=== PATIENT | female | born 1945 | race Caucasian/White ===

== ENCOUNTER 2016-12-11 23:49 | Emergency (ER) | payer MEDICARE ==
[2016-12-11 23:55] VITALS: TEMP 97
[2016-12-12] MEDS ORDERED: ONDANSETRON 4 MG/2 ML VIAL IVP STA (00:36)
[2016-12-12] MEDS ORDERED: MORPHINE SULFATE 4 MG/ML SYRINGE IV STA (00:36)
[2016-12-12 00:45] LABS: Basophils # (A) 0.1 k/uL (0-0.2); Basophils % (A) 1 %; CH 31.9; CHCM 34.5; Eosinophils # (A) 0.3 k/uL (0-0.7); Eosinophils % (A) 3 %; HCT 41.1 % (34.0-46.0); HDW 2.45; HGB 13.9 gm/dL (11.4-16.0); Luc # (Auto) 0.36; Luc % (Auto) 4; Lymphocytes # (A) 4.5 k/uL (1.0-4.8); Lymphocytes % (A) 46 %; MCH 31.3 pg (25.0-35.0); MCHC 33.8 g/dL (31.0-37.0); MCV 92.6 fL (80.0-100.0); Mean Platelet Volume 6.7; Monocytes # (A) 0.5 k/uL (0-1.0); Monocytes % (A) 6 %; Neutrophils % (A) 41 %; RBC 4.43 m/uL (3.80-5.40); RDW 12.6 % (11.5-15.5); WBC 9.7 k/uL (3.8-10.6); WBC (Perox) 9.52
[2016-12-12 00:54] LABS: ALT 31 U/L (9-52); AST 27 U/L (14-36); Alkaline Phosphatase 52 U/L (38-126); Amylase 77 U/L (30-110); Anion Gap 9 mmol/L; Blood Urea Nitrogen 13 mg/dL (7-17); Calcium 9.6 mg/dL (8.4-10.2); Carbon Dioxide 26 mmol/L (22-30); Chloride 106 mmol/L (98-107); Glucose 92 mg/dL (74-99); Non-African American GFR(MDRD) >60 (>60 ml/min/1.73 sqM); Potassium 4.3 mmol/L (3.5-5.1); Sodium 141 mmol/L (137-145); Total Bilirubin 0.3 mg/dL (0.2-1.3); Total Protein 7.1 g/dL (6.3-8.2)
--- NOTE | 2016-12-12 01:40 | CT ---
EXAM: CT ABDOMEN + PELVIS Without Contrast INDICATION: 71-year-old female with right upper quadrant pain, stone protocol. COMPARISON: None. TECHNIQUE: Multiple axial CT images of the abdomen and pelvis without contrast material. Reformatted coronal and sagittal images are submitted. DOSE: CTDI is 13.10 mGy and DLP is 632.20 mGy-cm. DOSE REDUCTION: This CT exam was performed using one or more of the following dose reduction techniques: automated exposure control, adjustment of the mA and/or kV according to patient size, and/or use of iterative reconstruction technique. FINDINGS: Lung bases: Clear. No pleural effusion. Solid organs: 1.2 cm hypodense lesion is present in the left lobe of the liver near the hepatic dome most compatible with a hepatic cyst. No renal or ureteral calculi present. No hydronephrosis or perinephric fluid. Ureters are normal caliber. Remaining solid organs are unremarkable in this noncontrast examination tailored for the evaluation of renal calculi. The gallbladder is within normal limits. GI tract: Scattered sigmoid diverticula are present without inflammatory changes to suggest diverticulitis. The stomach, small intestine, and remaining large intestine is within normal limits. There is no free intraperitoneal air or fluid. The appendix is not well-visualized. No secondary sign of appendicitis. Lymph nodes: No pathologically enlarged lymph nodes. Vascular: Atherosclerosis. No aneurysm. Musculoskeletal: No aggressive appearing osseous lesion or evidence of compression fracture. Soft tissues are unremarkable. Pelvic contents: Urinary bladder is mildly distended. Multiple phleboliths are present in the pelvis. No pelvic adenopathy, free fluid, or inflammatory process. IMPRESSION: 1. No acute abdominal pelvic abnormality. 2. No renal/ureteral calculi or evidence of obstructive uropathy. 3. Small hepatic cyst. 4. Sigmoid diverticulosis without evidence of diverticulitis.
[2016-12-12 01:44] LABS: Appearance,Urine Clear (Clear); Bilirubin,Urine Negative (Negative); Glucose,Urine (UA) Negative (Negative); Ketones,Urine Negative (Negative); Leukocyte Esterase,Urine Small (Negative); Nitrite,Urine Negative (Negative); PH, Urine 7.5 (5.0-8.0); Particle Count 360; Protein,Urine Negative (Negative); Specific Gravity,Urine 1.004 (1.001-1.035); Squamous Epithelial Cell,Urine <1 /hpf (0-4); UA Billing (MACRO vs. MICRO) MICRO; Urobilinogen,Urine <2.0 mg/dL (<2.0); WBC,Urine 1 /hpf (0-5)
--- NOTE | 2016-12-12 02:39 | ED ---
Abdominal Pain HPI <MikeabyYoko - Last Filed: 12/13/16 00:53> - General Source: patient Mode of arrival: ambulatory Limitations: no limitations - History of Present Illness MD Complaint: abdominal pain, flank pain -: days(s) Location: RUQ, R flank Radiation: none Migration to: no migration Quality: sharp Consistency: constant Improves With: nothing Worsens With: nothing Associated Symptoms: nausea <Richie Shipley - Last Filed: 12/29/16 11:34> - General Chief Complaint: Abdominal Pain Stated Complaint: back/abd pain Time Seen by Provider: 12/12/16 00:26 - Related Data Home Medications Medication Instructions Recorded Confirmed Citalopram Hydrobromide [CeleXA] 30 mg PO DAILY 02/23/14 04/05/16 busPIRone HCL [Buspar] 15 mg PO TID 02/23/14 04/05/16 lamoTRIgine [LaMICtal] 37.5 mg PO DAILY 02/23/14 04/05/16 Colchicine 0.6 mg PO DAILY PRN 01/02/16 04/05/16 Previous Rx's Medication Instructions Recorded Famciclovir [Famvir] 500 mg PO TID #21 tablet 04/05/16 Hydrocodone/Acetaminophen [[place] 1 each PO Q6HR PRN #20 tab 04/05/16 5-325] hydrOXYzine HCL 25 mg PO TID #10 tablet 04/05/16 Cyclobenzaprine [Flexeril] 10 mg PO TID #20 tab 05/24/16 HYDROcodone/APAP 5-325MG [[place] 1 - 2 tab PO Q6HR PRN #15 tab 05/24/16 5-325] traMADol HCl [Ultram] 50 mg PO Q6H PRN #20 tab 12/12/16 Hydrocodone/Acetaminophen [[place] 1 each PO Q6HR PRN #20 tab 12/13/16 5-325] Allergies Allergy/AdvReac Type Severity Reaction Status Date / Time Penicillins Allergy Rash/Hives Verified 12/13/16 00:32 ciprofloxacin [From Cipro] AdvReac Vomiting Verified 12/13/16 00:32 metformin HCl AdvReac LACTIC Verified 12/13/16 00:32 [From Glucophage] ACIDOSIS NSAIDS (Non-Steroidal AdvReac ELAVATED Verified 12/13/16 00:32 Anti-Inflamma LIVER ENZYMES prednisone AdvReac Hallucinati Verified 12/13/16 00:32 ons Review of Systems ROS Other: All systems not noted in ROS Statement are negative. <Yoko Rhoades - Last Filed: 12/13/16 00:53> ROS Other: All systems not noted in ROS Statement are negative. Constitutional: Denies: fever, chills Respiratory: Denies: cough, dyspnea Cardiovascular: Denies: chest pain, palpitations, edema, syncope Gastrointestinal: Reports: as per HPI, abdominal pain. Denies: vomiting, diarrhea, constipation, melena, hematochezia Genitourinary: Denies: dysuria, hematuria Musculoskeletal: Denies: back pain Skin: Denies: rash Neurological: Denies: headache <Richie Shipley Filed: 12/29/16 11:34> ROS Statement: Those systems with pertinent positive or pertinent negative responses have been documented in the HPI. Past Medical History Past Medical History: Diabetes Mellitus Additional Past Medical History / Comment(s): DDD, chronic back pain, gout History of Any Multi-Drug Resistant Organisms: None Reported Past Surgical History: Orthopedic Surgery, Tubal Ligation Additional Past Surgical History / Comment(s): cataract surgery December 2012 Past Anesthesia/Blood Transfusion Reactions: No Reported Reaction Past Psychological History: Bipolar Smoking Status: Current every day smoker Past Alcohol Use History: Rare Past Drug Use History: None Reported <Richie Shipley Filed: 12/29/16 11:34> General Exam Limitations: no limitations General appearance: alert, in no apparent distress Head exam: Present: atraumatic, normocephalic Eye exam: Present: normal appearance. Absent: scleral icterus, conjunctival injection Neck exam: Present: normal inspection, full ROM Respiratory exam: Present: normal lung sounds bilaterally. Absent: respiratory distress, wheezes, rales, rhonchi, stridor Cardiovascular Exam: Present: regular rate, normal rhythm, normal heart sounds. Absent: systolic murmur, diastolic murmur, rubs, gallop GI/Abdominal exam: Present: soft. Absent: distended, tenderness, guarding, rebound Extremities exam: Present: normal inspection, normal capillary refill. Absent: pedal edema, calf tenderness Neurological exam: Present: alert Skin exam: Present: warm, dry, intact, normal color. Absent: rash <Richie Shipley Filed: 12/29/16 11:34> Medical Decision Making - Lab Data Result diagrams: 12/12/16 00:14 12/12/16 00:14 <Yoko Rhoades - Last Filed: 12/13/16 00:53> - Lab Data Result diagrams: 12/12/16 00:14 12/12/16 00:14 <Richie Shipley - Last Filed: 12/29/16 11:34> - Lab Data Lab Results 12/12/16 12/12/16 12/12/16 Range/Units 00:14 00:14 01:03 WBC 9.7 (3.8-10.6) k/uL RBC 4.43 (3.80-5.40) m/uL Hgb 13.9 (11.4-16.0) gm/dL Hct 41.1 (34.0-46.0) % MCV 92.6 (80.0-100.0) fL MCH 31.3 (25.0-35.0) pg MCHC 33.8 (31.0-37.0) g/dL RDW 12.6 (11.5-15.5) % Plt Count 218 (150-450) k/uL Neutrophils % 41 % Lymphocytes % 46 % Monocytes % 6 % Eosinophils % 3 % Basophils % 1 % Neutrophils # 4.0 (1.3-7.7) k/uL Lymphocytes # 4.5 (1.0-4.8) k/uL Monocytes # 0.5 (0-1.0) k/uL Eosinophils # 0.3 (0-0.7) k/uL Basophils # 0.1 (0-0.2) k/uL Sodium 141 (137-145) mmol/L Potassium 4.3 (3.5-5.1) mmol/L Chloride 106 (98-107) mmol/L Carbon Dioxide 26 (22-30) mmol/L Anion Gap 9 mmol/L BUN 13 (7-17) mg/dL Creatinine 0.80 (0.52-1.04) mg/dL Est GFR (MDRD) Af Amer >60 (>60 ml/min/1.73 sqM) Est GFR (MDRD) Non-Af >60 (>60 ml/min/1.73 sqM) Glucose 92 (74-99) mg/dL Calcium 9.6 (8.4-10.2) mg/dL Total Bilirubin 0.3 (0.2-1.3) mg/dL AST 27 (14-36) U/L ALT 31 (9-52) U/L Alkaline Phosphatase 52 (38-126) U/L Total Protein 7.1 (6.3-8.2) g/dL Albumin 4.6 (3.5-5.0) g/dL Amylase 77 (30-110) U/L Lipase 284 (23-300) U/L Urine Color Colorless Urine Appearance Clear (Clear) Urine pH 7.5 (5.0-8.0) Ur Specific [place] 1.004 (1.001-1.035) Urine Protein Negative (Negative) Urine Glucose (UA) Negative (Negative) Urine Ketones Negative (Negative) Urine Blood Negative (Negative) Urine Nitrite Negative (Negative) Urine Bilirubin Negative (Negative) Urine Urobilinogen <2.0 (<2.0) mg/dL Ur Leukocyte Esterase Small H (Negative) Urine WBC 1 (0-5) /hpf Ur Squamous Epith Cells <1 (0-4) /hpf Disposition <Yoko Rhoades - Last Filed: 12/13/16 00:53> <Richie Shipley - Last Filed: 12/29/16 11:34> Clinical Impression: Abdominal pain Disposition: HOME SELF-CARE Condition: Fair Instructions: Abdominal Pain (ED) Prescriptions: traMADol HCl [Ultram] 50 mg PO Q6H PRN #20 tab PRN Reason: Pain Referrals: Gonzalez Barlow MD [Primary Care Provider] - 1-2 days Lani Collier DO [Doctor of Osteopathic Medicine] - 1-2 days
[2016-12-12 02:51] VITALS: BP 163/68; PULSE 97; RESP 18
== END 2016-12-12 02:51 | disposition home or self-care (01) ==
LOC: EC 23:49
DX: R10.9 Unspecified abdominal pain (principal); F31.9 Bipolar disorder, unspecified; F17.200 Nicotine dependence, unspecified, uncomplicated; Z79.899 Other long term (current) drug therapy; Z88.0 Allergy status to penicillin; Z88.1 Allergy status to other antibiotic agents; Z88.6 Allergy status to analgesic agent; Z88.8 Allergy status to other drugs, medicaments and biological substances; Z98.51 Tubal ligation status
CPT/HCPCS: 36415; 80053; 82150; 83690; 85025; 81001; 74176; 99284; 96374; 96375; J2270; J2405

== ENCOUNTER 2016-12-13 00:26 | Emergency (ER) | payer MEDICARE ==
[2016-12-13 00:32] VITALS: BP 148/77; PULSE 95; TEMP 97
[2016-12-13] MEDS ORDERED: SODIUM CHLORIDE 0.9% 1,000 ML IV STA (00:40)
[2016-12-13] MEDS ORDERED: DICYCLOMINE 10 MG/ML 2 ML AMP IM STA (00:41)
--- NOTE | 2016-12-13 00:53 | ED ---
Abdominal Pain HPI - General Chief Complaint: Abdominal Pain Stated Complaint: gallbladder issues Time Seen by Provider: 12/13/16 00:35 Source: patient, RN notes reviewed Mode of arrival: ambulatory Limitations: no limitations - History of Present Illness Initial Comments: 71-year-old female presents emergency Department chief complaint of right upper quadrant abdominal pain. Patient states this pain started yesterday. Patient states she came in and she was sent home informing her there is something well with her gallbladder. Patient states the pain recurred tonight so she came back to be evaluated. Patient states she has not had a nausea vomiting fever chills with this. Patient states that there is no changes in bowel or bladder habits. Patient states the pain does require laparotomy radiate to the back. Patient states she was concerned due to the continued symptoms so she thought that she should be evaluated.Patient denies any recent fever, chills, shortness of breath, chest pain, back pain, nausea vomiting, numbness or tingling, dysuria or hematuria, constipation or diarrhea, headaches or visual changes, or any other current symptoms. - Related Data Home Medications Medication Instructions Recorded Confirmed Citalopram Hydrobromide [CeleXA] 30 mg PO DAILY 02/23/14 04/05/16 busPIRone HCL [Buspar] 15 mg PO TID 02/23/14 04/05/16 lamoTRIgine [LaMICtal] 37.5 mg PO DAILY 02/23/14 04/05/16 Colchicine 0.6 mg PO DAILY PRN 01/02/16 04/05/16 Previous Rx's Medication Instructions Recorded Famciclovir [Famvir] 500 mg PO TID #21 tablet 04/05/16 Hydrocodone/Acetaminophen [[place] 1 each PO Q6HR PRN #20 tab 04/05/16 5-325] hydrOXYzine HCL 25 mg PO TID #10 tablet 04/05/16 Cyclobenzaprine [Flexeril] 10 mg PO TID #20 tab 05/24/16 HYDROcodone/APAP 5-325MG [[place] 1 - 2 tab PO Q6HR PRN #15 tab 05/24/16 5-325] traMADol HCl [Ultram] 50 mg PO Q6H PRN #20 tab 12/12/16 Allergies Allergy/AdvReac Type Severity Reaction Status Date / Time Penicillins Allergy Rash/Hives Verified 12/13/16 00:32 ciprofloxacin [From Cipro] AdvReac Vomiting Verified 12/13/16 00:32 metformin HCl AdvReac LACTIC Verified 12/13/16 00:32 [From Glucophage] ACIDOSIS NSAIDS (Non-Steroidal AdvReac ELAVATED Verified 12/13/16 00:32 Anti-Inflamma LIVER ENZYMES prednisone AdvReac Hallucinati Verified 12/13/16 00:32 ons Review of Systems ROS Statement: Those systems with pertinent positive or pertinent negative responses have been documented in the HPI. ROS Other: All systems not noted in ROS Statement are negative. Past Medical History Past Medical History: Diabetes Mellitus Additional Past Medical History / Comment(s): DDD, chronic back pain, gout History of Any Multi-Drug Resistant Organisms: None Reported Past Surgical History: Orthopedic Surgery, Tubal Ligation Additional Past Surgical History / Comment(s): cataract surgery December 2012 Past Anesthesia/Blood Transfusion Reactions: No Reported Reaction Past Psychological History: Bipolar Smoking Status: Current every day smoker Past Alcohol Use History: Rare Past Drug Use History: None Reported General Exam - General Exam Comments Initial Comments: General: The patient is awake and alert, in no distress, and does not appear acutely ill. Eye: Pupils are equal, round and reactive to light, extra-ocular movements are intact; there is normal conjunctiva bilaterally. No signs of icterus. Ears, nose, mouth and throat: There are moist mucous membranes and no oral lesions. Neck: The neck is supple, there is no tenderness. Cardiovascular: There is a regular rate and rhythm. No murmur, rub or gallop is appreciated. Respiratory: Lungs are clear to auscultation, respirations are non-labored, breath sounds are equal. No wheezes, stridor, rales, or rhonchi. Gastrointestinal: Soft, non-distended, right upper quadrant tenderness of the abdomen without masses or organomegaly noted. There is no rebound or guarding present. No CVA tenderness. Bowel sounds are unremarkable. Back: There is no tenderness to palpation in the midline. There is no obvious deformity. No rashes noted. Musculoskeletal: Normal ROM, no tenderness, There is no pedal edema. There is no calf tenderness or swelling. Sensation intact. Pulses equal bilaterally 2+. Neurological: CN II-XII intact, There are no obvious motor or sensory deficits. Coordination appears grossly intact. Speech is normal. Skin: Skin is warm and dry and no rashes or lesions are noted. Psychiatric: Cooperative, appropriate mood & affect, normal judgment. Limitations: no limitations Course Vital Signs 12/13/16 00:29 Temperature 97.0 F L Pulse Rate 95 Respiratory 148 H Rate Blood Pressure 148/77 O2 Sat by Pulse 98 Oximetry Medical Decision Making - Medical Decision Making 71-year-old female presents for right-sided abdominal pain. At this time ultrasound was reviewed CAT scan is reviewed blood work is reviewed and does not patient's pain. This time we discussed with her follow-up to GI. We discussed SOUNDS findings with the liver and off since follow-up on this. Patient stated that she understood all questions have been answered. She will be discharged. - Lab Data Result diagrams: 12/13/16 00:50 12/13/16 00:50 Lab Results 12/13/16 12/13/16 12/13/16 Range/Units 00:50 00:50 00:50 WBC 10.1 (3.8-10.6) k/uL RBC 4.25 (3.80-5.40) m/uL Hgb 13.4 (11.4-16.0) gm/dL Hct 40.1 (34.0-46.0) % MCV 94.4 (80.0-100.0) fL MCH 31.6 (25.0-35.0) pg MCHC 33.4 (31.0-37.0) g/dL RDW 12.6 (11.5-15.5) % Plt Count 198 (150-450) k/uL Neutrophils % 40 % Lymphocytes % 46 % Monocytes % 6 % Eosinophils % 4 % Basophils % 1 % Neutrophils # 4.0 (1.3-7.7) k/uL Lymphocytes # 4.6 (1.0-4.8) k/uL Monocytes # 0.6 (0-1.0) k/uL Eosinophils # 0.4 (0-0.7) k/uL Basophils # 0.1 (0-0.2) k/uL Sodium 139 (137-145) mmol/L Potassium 3.9 (3.5-5.1) mmol/L Chloride 105 (98-107) mmol/L Carbon Dioxide 26 (22-30) mmol/L Anion Gap 8 mmol/L BUN 11 (7-17) mg/dL Creatinine 0.80 (0.52-1.04) mg/dL Est GFR (MDRD) Af Amer >60 (>60 ml/min/1.73 sqM) Est GFR (MDRD) Non-Af >60 (>60 ml/min/1.73 sqM) Glucose 86 (74-99) mg/dL Plasma Lactic Acid [place] 1.0 (0.7-2.0) mmol/L Calcium 9.4 (8.4-10.2) mg/dL Total Bilirubin 0.3 (0.2-1.3) mg/dL AST 25 (14-36) U/L ALT 35 (9-52) U/L Alkaline Phosphatase 60 (38-126) U/L Total Protein 7.2 (6.3-8.2) g/dL Albumin 4.6 (3.5-5.0) g/dL Amylase 65 (30-110) U/L Lipase 193 (23-300) U/L Urine Color Urine Appearance (Clear) Urine pH (5.0-8.0) Ur Specific [place] (1.001-1.035) Urine Protein (Negative) Urine Glucose (UA) (Negative) Urine Ketones (Negative) Urine Blood (Negative) Urine Nitrite (Negative) Urine Bilirubin (Negative) Urine Urobilinogen (<2.0) mg/dL Ur Leukocyte Esterase (Negative) Urine RBC (0-5) /hpf Urine WBC (0-5) /hpf Ur Squamous Epith Cells (0-4) /hpf Ur Transition Epith Cell (0-1) /hpf Urine Bacteria (None) /hpf 12/13/16 Range/Units 01:43 WBC (3.8-10.6) k/uL RBC (3.80-5.40) m/uL Hgb (11.4-16.0) gm/dL Hct (34.0-46.0) % MCV (80.0-100.0) fL MCH (25.0-35.0) pg MCHC (31.0-37.0) g/dL RDW (11.5-15.5) % Plt Count (150-450) k/uL Neutrophils % % Lymphocytes % % Monocytes % % Eosinophils % % Basophils % % Neutrophils # (1.3-7.7) k/uL Lymphocytes # (1.0-4.8) k/uL Monocytes # (0-1.0) k/uL Eosinophils # (0-0.7) k/uL Basophils # (0-0.2) k/uL Sodium (137-145) mmol/L Potassium (3.5-5.1) mmol/L Chloride (98-107) mmol/L Carbon Dioxide (22-30) mmol/L Anion Gap mmol/L BUN (7-17) mg/dL Creatinine (0.52-1.04) mg/dL Est GFR (MDRD) Af Amer (>60 ml/min/1.73 sqM) Est GFR (MDRD) Non-Af (>60 ml/min/1.73 sqM) Glucose (74-99) mg/dL Plasma Lactic Acid [place] (0.7-2.0) mmol/L Calcium (8.4-10.2) mg/dL Total Bilirubin (0.2-1.3) mg/dL AST (14-36) U/L ALT (9-52) U/L Alkaline Phosphatase (38-126) U/L Total Protein (6.3-8.2) g/dL Albumin (3.5-5.0) g/dL Amylase (30-110) U/L Lipase (23-300) U/L Urine Color Colorless Urine Appearance Clear (Clear) Urine pH 5.5 (5.0-8.0) Ur Specific [place] 1.001 (1.001-1.035) Urine Protein Negative (Negative) Urine Glucose (UA) Negative (Negative) Urine Ketones Negative (Negative) Urine Blood Negative (Negative) Urine Nitrite Negative (Negative) Urine Bilirubin Negative (Negative) Urine Urobilinogen <2.0 (<2.0) mg/dL Ur Leukocyte Esterase Large H (Negative) Urine RBC 1 (0-5) /hpf Urine WBC 6 H (0-5) /hpf Ur Squamous Epith Cells 1 (0-4) /hpf Ur Transition Epith Cell <1 (0-1) /hpf Urine Bacteria Rare H (None) /hpf - Radiology Data Radiology results: report reviewed, image reviewed Disposition Clinical Impression: Abdominal pain Disposition: HOME SELF-CARE Condition: Stable Instructions: Abdominal Pain (ED) Additional Instructions: Please use medication as discussed. Please follow up with family doctor if symptoms have not improved over the next two days. Please return to the emergency room if your symptoms increase or worsen or for any other concerns. Referrals: Gonzalez Barlow MD [Primary Care Provider] - 1-2 days Kyleigh Coy MD [STAFF PHYSICIAN] - 1-2 days Time of Disposition: 02:06
[2016-12-13 01:22] LABS: Basophils # (A) 0.1 k/uL (0-0.2); Basophils % (A) 1 %; CH 31.9; CHCM 33.9; Eosinophils # (A) 0.4 k/uL (0-0.7); Eosinophils % (A) 4 %; HCT 40.1 % (34.0-46.0); HDW 2.46; HGB 13.4 gm/dL (11.4-16.0); Luc # (Auto) 0.34; Luc % (Auto) 3; Lymphocytes # (A) 4.6 k/uL (1.0-4.8); Lymphocytes % (A) 46 %; MCH 31.6 pg (25.0-35.0); MCHC 33.4 g/dL (31.0-37.0); MCV 94.4 fL (80.0-100.0); Mean Platelet Volume 6.7; Monocytes # (A) 0.6 k/uL (0-1.0); Monocytes % (A) 6 %; Neutrophils % (A) 40 %; RBC 4.25 m/uL (3.80-5.40); RDW 12.6 % (11.5-15.5); WBC 10.1 k/uL (3.8-10.6)
[2016-12-13 01:24] LABS: ALT 35 U/L (9-52); AST 25 U/L (14-36); Alkaline Phosphatase 60 U/L (38-126); Amylase 65 U/L (30-110); Anion Gap 8 mmol/L; Blood Urea Nitrogen 11 mg/dL (7-17); Calcium 9.4 mg/dL (8.4-10.2); Carbon Dioxide 26 mmol/L (22-30); Chloride 105 mmol/L (98-107); Glucose 86 mg/dL (74-99); Non-African American GFR(MDRD) >60 (>60 ml/min/1.73 sqM); Potassium 3.9 mmol/L (3.5-5.1); Sodium 139 mmol/L (137-145); Total Bilirubin 0.3 mg/dL (0.2-1.3); Total Protein 7.2 g/dL (6.3-8.2)
--- NOTE | 2016-12-13 01:53 | US ---
EXAM: US Abdomen Limited, Right Upper Quadrant CLINICAL HISTORY: Reason: Pain TECHNIQUE: Real-time ultrasound of the right upper quadrant with image documentation. COMPARISON: CT abdomen and pelvis dated 12/12/2016 FINDINGS: Liver: The liver is normal in size with increased echogenicity suggesting hepatic steatosis. Simple cyst within the right hepatic lobe measured before 2 mm and within the left hepatic lobe measuring up to 13 mm The common hepatic duct measures up to 2.5 mm. Gallbladder: Negative sonographic Rea's sign. No gallstones. Common bile duct: See above. Pancreas: Unremarkable as visualized. Right kidney: Anechoic lesion at the hilum of the right kidney measured 12 mm, which may represent a simple cyst. The right kidney measures up to 9.9 cm. No stones. No hydronephrosis. IMPRESSION: Hepatic steatosis with a couple simple cysts within both hepatic lobes.
[2016-12-13] MEDS ORDERED: ONDANSETRON 4 MG/2 ML VIAL IVP STA (01:57)
[2016-12-13] MEDS ORDERED: HYDROmorphone 1 MG/ML 1 ML SYRINGE IVP STA (01:57)
[2016-12-13 01:59] LABS: Appearance,Urine Clear (Clear); Bacteria,Urine Rare /hpf; Bilirubin,Urine Negative (Negative); Glucose,Urine (UA) Negative (Negative); Ketones,Urine Negative (Negative); Leukocyte Esterase,Urine Large (Negative); Nitrite,Urine Negative (Negative); PH, Urine 5.5 (5.0-8.0); Particle Count 1613; Protein,Urine Negative (Negative); RBC,Urine 1 /hpf (0-5); Specific Gravity,Urine 1.001 (1.001-1.035); Squamous Epithelial Cell,Urine 1 /hpf (0-4); Transitional Epi Cells,Urine <1 /hpf (0-1); UA Billing (MACRO vs. MICRO) MICRO; Urobilinogen,Urine <2.0 mg/dL (<2.0); WBC,Urine 6 /hpf (0-5)
--- NOTE | 2016-12-13 02:03 | XR ---
EXAM: XR Abdomen Complete, 2 or More Views CLINICAL HISTORY: Pain TECHNIQUE: Frontal view of the abdomen/pelvis with upright view of the abdomen. COMPARISON: No relevant prior studies available. FINDINGS: Intraperitoneal space: No pneumatosis or free air. Gastrointestinal tract: Non-obstructive bowel gas pattern. Organs: Punctate calcifications within the pelvis, likely represent phleboliths. Bones/joints: Mild degenerative changes of the osseous structures. IMPRESSION: No acute findings.
[2016-12-13 02:07] VITALS: RESP 18
== END 2016-12-13 02:36 | disposition home or self-care (01) ==
LOC: EC 00:26
DX: R10.11 Right upper quadrant pain (principal); F31.9 Bipolar disorder, unspecified; F17.200 Nicotine dependence, unspecified, uncomplicated; Z88.6 Allergy status to analgesic agent; Z88.0 Allergy status to penicillin; Z88.1 Allergy status to other antibiotic agents; Z88.8 Allergy status to other drugs, medicaments and biological substances; Z79.899 Other long term (current) drug therapy
CPT/HCPCS: 99284; 96374; 96375; 96361; 36415; 80053; 82150; 83605; 83690; 85025; 81001; 87040; 87086; 74020; 76705; J2405; J1170

== ENCOUNTER 2018-02-04 03:01 | Emergency (ER) | payer MEDICARE ==
[2018-02-04 03:07] VITALS: RESP 18; TEMP 98.4
--- NOTE | 2018-02-04 03:32 | ED ---
General Adult HPI - General Chief complaint: Chest Pain Stated complaint: Chest Pain Source: patient Mode of arrival: ambulatory Limitations: no limitations - History of Present Illness Initial comments: Dictation was produced using [employer] dictation software. please excuse any grammatical, word or spelling errors. Chief Complaint: 72-year-old female past medical history bipolar disease, diabetes presents with chest pain 1 day. History of Present Illness: He is at home when she began experiencing substernal chest pressure. Denies any radiation to her shoulders or neck. She states she has a history of GERD. Patient did complain of associated nausea no emesis. She did have some diaphoresis. She had multiple episodes prior to arriving today. Patient has been evaluated by chenille machine operator in the past. Last objective distress this was about a year ago. States that her stress test was negative. She is on daily aspirin. History of cardiac disease. The ROS documented in this emergency department record has been reviewed and confirmed by me. Those systems with pertinent positive or negative responses have been documented in the HPI. All other systems are other negative and/or noncontributory. - Related Data Home Medications Medication Instructions Recorded Confirmed Citalopram Hydrobromide [CeleXA] 30 mg PO DAILY 02/23/14 06/20/17 busPIRone HCL [Buspar] 15 mg PO TID 02/23/14 06/20/17 lamoTRIgine [LaMICtal] 37.5 mg PO DAILY 02/23/14 06/20/17 Aspirin [Adult Low Dose Aspirin EC] 81 mg PO DAILY 06/20/17 06/20/17 Cholecalciferol [Vitamin D3] 1,000 unit PO DAILY 06/20/17 06/20/17 Previous Rx's Medication Instructions Recorded Hydrocodone/Acetaminophen [[place] 1 each PO Q6HR PRN #20 tab 04/05/16 5-325] traMADol HCl [Ultram] 50 mg PO Q6H PRN #20 tab 12/12/16 Allergies Allergy/AdvReac Type Severity Reaction Status Date / Time cephalexin [From Keflex] Allergy Rash/Hives Verified 02/04/18 03:07 Penicillins Allergy Rash/Hives Verified 02/04/18 03:07 ciprofloxacin [From Cipro] AdvReac Vomiting Verified 02/04/18 03:07 levofloxacin AdvReac Vomiting Verified 02/04/18 03:07 metformin HCl AdvReac LACTIC Verified 02/04/18 03:07 [From Glucophage] ACIDOSIS NSAIDS (Non-Steroidal AdvReac ELAVATED Verified 02/04/18 03:07 Anti-Inflamma LIVER ENZYMES prednisone AdvReac Hallucinati Verified 02/04/18 03:07 ons Review of Systems ROS Statement: Those systems with pertinent positive or pertinent negative responses have been documented in the HPI. ROS Other: All systems not noted in ROS Statement are negative. Past Medical History Past Medical History: Diabetes Mellitus Additional Past Medical History / Comment(s): DDD, chronic back pain, gout History of Any Multi-Drug Resistant Organisms: None Reported Past Surgical History: Orthopedic Surgery, Tubal Ligation Additional Past Surgical History / Comment(s): cataract surgery December 2012 Past Anesthesia/Blood Transfusion Reactions: No Reported Reaction Past Psychological History: Bipolar Smoking Status: Current every day smoker Past Alcohol Use History: Rare Past Drug Use History: None Reported General Exam - General Exam Comments Initial Comments: PHYSICAL EXAM: General Impression: Alert and oriented x3, not in acute distress HEENT: Normocephalic atraumatic, extra-ocular movements intact, pupils equal and reactive to light bilaterally, mucous membranes moist. Cardiovascular: Heart regular rate and rhythm, S1&S2 audible, no murmurs, rubs or gallops Chest: Lungs clear to auscultation bilaterally, no rhonchi, no wheeze, no rales Abdomen: Bowel sounds present, abdomen soft, non-tender, non-distended, no organomegaly Musculoskeletal: Pulses present and equal in all extremities, no peripheral edema Motor: Power 5/5 bilaterally, no focal deficits noted Neurological: CN II-XII grossly intact, no focal motor or sensory deficits noted Skin: Intact with no visualized rashes Psych: Normal affect and mood Limitations: no limitations Course Vital Signs 02/04/18 02/04/18 02/04/18 03:03 04:39 06:24 Temperature 98.4 F Pulse Rate 93 77 71 Respiratory 18 18 18 Rate Blood Pressure 161/84 108/55 99/51 O2 Sat by Pulse 98 99 99 Oximetry Medical Decision Making - Medical Decision Making ED course: 72-year-old female presents with chest pain concerning for ACS. He is hemodynamically stable. Vital signs are within normal limits. Patient is well-appearing at this time. She is not complaining of any chest pain or shortness of breath. EKG does not show any signs of ischemia or infarction. Laboratory evaluation obtained. Laboratory evaluation obtained. CBC unremarkable coag panel unremarkable. Metabolic panel unremarkable. 2 sets troponins are negative. Patient's troponins are by 3 hours. Patient reevaluated and found to be in stable condition. Patient given aspirin. Patient's symptoms are atypical with typical features. She does have a chenille machine operator. Patient requests to be discharge where she arranged for a cardiac stress tests outpatient with her chenille machine operator. Patient offered and patient to observation for inpatient cardiac stress test however she preferred getting it performed outpatient. Patient told that should she experience recurrence of symptoms that she should come back to the emergency department. Patient reevaluated found to be in stable condition. She is pain-free at this time. Presentation consistent with atypical chest pain with typical features. Is understandable and agreeable to plan. EKG Interpretation: A 12 lead EKG was obtained. It was interpreted by myself and attending physician. There is a P wave before every QRS complex. Rate is [default value]. Rhythm is [default value]. QT is not prolonged. No ST segment depression or elevation. This EKG was compared to a previous EKG that was obtained on [ default value] and showed no significant change. Overall, this EKG is unremarkable - Lab Data Result diagrams: 02/04/18 03:22 02/04/18 03:22 Lab Results 02/04/18 02/04/18 02/04/18 Range/Units 03:22 03:22 03:22 WBC 9.0 (3.8-10.6) k/uL RBC 4.59 (3.80-5.40) m/uL Hgb 13.5 (11.4-16.0) gm/dL Hct 41.8 (34.0-46.0) % MCV 91.2 (80.0-100.0) fL MCH 29.4 (25.0-35.0) pg MCHC 32.3 (31.0-37.0) g/dL RDW 12.2 (11.5-15.5) % Plt Count 225 (150-450) k/uL Neutrophils % 44 % Lymphocytes % 45 % Monocytes % 5 % Eosinophils % 4 % Basophils % 1 % Neutrophils # 3.9 (1.3-7.7) k/uL Lymphocytes # 4.0 (1.0-4.8) k/uL Monocytes # 0.4 (0-1.0) k/uL Eosinophils # 0.3 (0-0.7) k/uL Basophils # 0.1 (0-0.2) k/uL PT (9.0-12.0) sec INR (<1.2) APTT (22.0-30.0) sec Sodium 137 (137-145) mmol/L Potassium 4.1 (3.5-5.1) mmol/L Chloride 103 (98-107) mmol/L Carbon Dioxide 27 (22-30) mmol/L Anion Gap 7 mmol/L BUN 10 (7-17) mg/dL Creatinine 0.70 (0.52-1.04) mg/dL Est GFR (CKD-EPI)AfAm >90 (>60 ml/min/1.73 sqM) Est GFR (CKD-EPI)NonAf 87 (>60 ml/min/1.73 sqM) Glucose 173 H (74-99) mg/dL Calcium 9.0 (8.4-10.2) mg/dL Magnesium 2.1 (1.6-2.3) mg/dL Total Bilirubin 0.2 (0.2-1.3) mg/dL AST 23 (14-36) U/L ALT 29 (9-52) U/L Alkaline Phosphatase 47 (38-126) U/L Total Creatine Kinase 45 (30-135) U/L CK-MB (CK-2) 0.4 (0.0-2.4) ng/mL CK-MB (CK-2) Rel Index 0.9 Troponin I <0.012 (0.000-0.034) ng/mL Total Protein 6.7 (6.3-8.2) g/dL Albumin 4.2 (3.5-5.0) g/dL 02/04/18 02/04/18 Range/Units 03:22 06:20 WBC (3.8-10.6) k/uL RBC (3.80-5.40) m/uL Hgb (11.4-16.0) gm/dL Hct (34.0-46.0) % MCV (80.0-100.0) fL MCH (25.0-35.0) pg MCHC (31.0-37.0) g/dL RDW (11.5-15.5) % Plt Count (150-450) k/uL Neutrophils % % Lymphocytes % % Monocytes % % Eosinophils % % Basophils % % Neutrophils # (1.3-7.7) k/uL Lymphocytes # (1.0-4.8) k/uL Monocytes # (0-1.0) k/uL Eosinophils # (0-0.7) k/uL Basophils # (0-0.2) k/uL PT 9.5 (9.0-12.0) sec INR 1.0 (<1.2) APTT 23.7 (22.0-30.0) sec Sodium (137-145) mmol/L Potassium (3.5-5.1) mmol/L Chloride (98-107) mmol/L Carbon Dioxide (22-30) mmol/L Anion Gap mmol/L BUN (7-17) mg/dL Creatinine (0.52-1.04) mg/dL Est GFR (CKD-EPI)AfAm (>60 ml/min/1.73 sqM) Est GFR (CKD-EPI)NonAf (>60 ml/min/1.73 sqM) Glucose (74-99) mg/dL Calcium (8.4-10.2) mg/dL Magnesium (1.6-2.3) mg/dL Total Bilirubin (0.2-1.3) mg/dL AST (14-36) U/L ALT (9-52) U/L Alkaline Phosphatase (38-126) U/L Total Creatine Kinase (30-135) U/L CK-MB (CK-2) (0.0-2.4) ng/mL CK-MB (CK-2) Rel Index Troponin I <0.012 (0.000-0.034) ng/mL Total Protein (6.3-8.2) g/dL Albumin (3.5-5.0) g/dL Disposition Clinical Impression: Chest pain Disposition: HOME SELF-CARE Condition: Fair Instructions: Chest Pain (ED) Is patient prescribed a controlled substance at d/c from ED?: No Referrals: Gonzalez Barlow MD [Primary Care Provider] - 1-2 days Serjio Loving MD [STAFF PHYSICIAN] - 1-2 days Time of Disposition: 07:32
[2018-02-04 03:33] LABS: Basophils # (A) 0.1 k/uL (0-0.2); Basophils % (A) 1 %; Eosinophils # (A) 0.3 k/uL (0-0.7); Eosinophils % (A) 4 %; HCT 41.8 % (34.0-46.0); HGB 13.5 gm/dL (11.4-16.0); Lymphocytes % (A) 45 %; MCH 29.4 pg (25.0-35.0); MCHC 32.3 g/dL (31.0-37.0); MCV 91.2 fL (80.0-100.0); Mean Platelet Volume 6.6; Monocytes # (A) 0.4 k/uL (0-1.0); Monocytes % (A) 5 %; Neutrophils # (A) 3.9 k/uL (1.3-7.7); Neutrophils % (A) 44 %; Platelet Count 225 k/uL (150-450); RBC 4.59 m/uL (3.80-5.40); RDW 12.2 % (11.5-15.5)
[2018-02-04 03:43] LABS: ALT 29 U/L (9-52); AST 23 U/L (14-36); Albumin 4.2 g/dL (3.5-5.0); Alkaline Phosphatase 47 U/L (38-126); Anion Gap 7 mmol/L; Blood Urea Nitrogen 10 mg/dL (7-17); Carbon Dioxide 27 mmol/L (22-30); Chloride 103 mmol/L (98-107); Glucose 173 mg/dL (74-99); Magnesium 2.1 mg/dL (1.6-2.3); Potassium 4.1 mmol/L (3.5-5.1); Sodium 137 mmol/L (137-145); Total Bilirubin 0.2 mg/dL (0.2-1.3); Total Protein 6.7 g/dL (6.3-8.2)
[2018-02-04 03:47] LABS: Partial Thromboplastin Time 23.7 sec (22.0-30.0); Prothrombin Time 9.5 sec (9.0-12.0)
[2018-02-04 03:52] LABS: Creatine Kinase 45 U/L (30-135)
--- NOTE | 2018-02-04 03:54 | XR ---
EXAMINATION TYPE: XR chest 2V DATE OF EXAM: 02/04/2018 COMPARISON: 06/20/2017 HISTORY: Chest pain TECHNIQUE: Frontal and lateral views of the chest are obtained. FINDINGS: Heart and mediastinum are normal. Lungs are clear. Diaphragm is normal. Bony thorax is int act. IMPRESSION: Normal chest. No change.
[2018-02-04 04:06] LABS: Creatine Kinase MB 0.4 ng/mL (0.0-2.4); Troponin I <0.012 ng/mL (0.000-0.034)
[2018-02-04] MEDS ORDERED: ASPIRIN 81 MG PO STA (04:10)
[2018-02-04 07:36] VITALS: BP 110/58; PULSE 77
== END 2018-02-04 07:42 | disposition home or self-care (01) ==
LOC: EC 03:01
DX: R07.2 Precordial pain (principal); R61 Generalized hyperhidrosis; F31.9 Bipolar disorder, unspecified; F17.200 Nicotine dependence, unspecified, uncomplicated; Z79.899 Other long term (current) drug therapy; Z88.1 Allergy status to other antibiotic agents; Z88.0 Allergy status to penicillin; Z88.6 Allergy status to analgesic agent; Z88.8 Allergy status to other drugs, medicaments and biological substances
CPT/HCPCS: 36415; 71046; 80053; 82550; 82553; 83735; 84484; 85025; 85610; 85730; 93005; 99285

== ENCOUNTER 2019-02-23 19:02 | Emergency (ER) | payer MEDICARE ==
[2019-02-23 19:06] VITALS: BP 134/82; PULSE 81; RESP 20; TEMP 97.7
[2019-02-23] MEDS ORDERED: PROPARACAINE 0.5% OPHTH DROPS 15 ML BTL LEFT EYE STA (19:13)
[2019-02-23] MEDS ORDERED: KETOTIFEN 0.025% OPHTH DROPS 5 ML BTL LEFT EYE STA (19:58)
--- NOTE | 2019-02-23 20:01 | ED ---
Eye Problem HPI - General Chief complaint: Eye Problems Stated complaint: FB in eye Time Seen by Provider: 02/23/19 19:06 Source: patient Mode of arrival: ambulatory Limitations: no limitations - History of Present Illness Initial comments: 73-year-old female presenting for chief complaint of left eye irritation. Patient states it feels as though something is left eye. She states it is watery and itchy. Patient denies using welding equipment, grinding any materials or working with wood. Patient denies any specific instance of 1 the symptoms began she states she was sitting there watching TV. Patient states are slightly red. She denies any headache nausea or vomiting. Patient states she does have history of cataracts and dry eye. Patient denies any visual changes or blurred vision. Remaining review systems negative. Upon arrival patient appears well no signs of acute distress. - Related Data Home Medications Medication Instructions Recorded Confirmed Citalopram Hydrobromide [CeleXA] 30 mg PO DAILY 02/23/14 02/04/18 busPIRone HCL [Buspar] 15 mg PO QID 02/23/14 02/04/18 lamoTRIgine [LaMICtal] 37.5 mg PO DAILY 02/23/14 02/04/18 Aspirin [Adult Low Dose Aspirin EC] 81 mg PO DAILY 06/20/17 02/04/18 Previous Rx's Medication Instructions Recorded Erythromycin Ophth Oint [Romycin 1 applic LEFT EYE QID 3 Days #1 02/23/19 Ophth Oint] tube Olopatadine HCl [Pataday] 1 drop BOTH EYES DAILY 7 Days #1 02/23/19 bottle Allergies Allergy/AdvReac Type Severity Reaction Status Date / Time cephalexin [From Keflex] Allergy Rash/Hives Verified 02/23/19 19:06 Penicillins Allergy Rash/Hives Verified 02/23/19 19:06 ciprofloxacin [From Cipro] AdvReac Vomiting Verified 02/23/19 19:06 levofloxacin AdvReac Vomiting Verified 02/23/19 19:06 metformin HCl AdvReac LACTIC Verified 02/23/19 19:06 [From Glucophage] ACIDOSIS NSAIDS (Non-Steroidal AdvReac ELAVATED Verified 02/23/19 19:06 Anti-Inflamma LIVER ENZYMES prednisone AdvReac Hallucinati Verified 02/23/19 19:06 ons Review of Systems ROS Statement: Those systems with pertinent positive or pertinent negative responses have been documented in the HPI. ROS Other: All systems not noted in ROS Statement are negative. Past Medical History Past Medical History: Diabetes Mellitus Additional Past Medical History / Comment(s): DDD, chronic back pain, gout History of Any Multi-Drug Resistant Organisms: None Reported Past Surgical History: Orthopedic Surgery, Tubal Ligation Additional Past Surgical History / Comment(s): cataract surgery December 2012 Past Anesthesia/Blood Transfusion Reactions: No Reported Reaction Past Psychological History: Bipolar Smoking Status: Current every day smoker Past Alcohol Use History: Rare Past Drug Use History: None Reported General Exam - General Exam Comments Initial Comments: General: The patient is awake and alert, in no distress, and does not appear acutely ill. Eye: +3 mm pupils are equal, round and reactive to light, extra-ocular movements are intact. No nystagmus. Mild conjunctival injection of the left eye. Noted chemosis of the left eye. No conjunctival injection and slight ecchymosis noted of the right eye. No signs of icterus. No APD OD IOP 11, OS 16. VF intact to confrontation. No orbital edema. The injection is in the limbus. No subconjunctival hemorrhage. On fluorescein examination no areas of uptake. Negative Zeynep sign. No foreign body noted on upper or lower lids. Cardiovascular: There is a regular rate and rhythm. No murmur, rub or gallop is appreciated. Respiratory: Lungs are clear to auscultation, respirations are non-labored, breath sounds are equal. No wheezes, stridor, rales, or rhonchi. Musculoskeletal: Normal ROM, no tenderness. Strength 5/5. Sensation intact. Pulses equal bilaterally 2+. Neurological: A&O x 3. CN II-XII intact, There are no obvious motor or sensory deficits. Coordination appears grossly intact. Speech is normal. Skin: Skin is warm and dry and no rashes or lesions are noted. Psychiatric: Cooperative, appropriate mood & affect, normal judgment. Limitations: no limitations Course Vital Signs 02/23/19 19:04 Temperature 97.7 F Pulse Rate 81 Respiratory 20 Rate Blood Pressure 134/82 O2 Sat by Pulse 99 Oximetry Medical Decision Making - Medical Decision Making Very well-appearing 73-year-old female. Eye examination unremarkable aside from slight conjunctival injection of the left eye as well as noted chemosis. Appears ALLERGIC, there is no evidence of foreign body. No corneal abrasion. IOP WNL. No visual changes per patient. Patient was provided a topical antihistamine in the emergency department. Patient is given outpatient prescriptions for the topical antihistamine as well as an antibiotic although this does not appear like an overt infection. I discussed the case metallic provider Dr. Alfaro at this time feel patient is stable for discharge with outpatient ophthalmology follow-up Disposition Clinical Impression: Chemosis, Irritation of left eye Disposition: HOME SELF-CARE Condition: Good Instructions (If sedation given, give patient instructions): Allergies (ED), Conjunctivitis (ED) Additional Instructions: Please use medication as discussed. Please follow-up ophthalmology within the next 24 hours him a doctor within the next 24-48 hours. Please return to emergency room if the symptoms increase or worsen or for any other concerns. Prescriptions: Olopatadine HCl [Pataday] 1 drop BOTH EYES DAILY 7 Days #1 bottle Erythromycin Ophth Oint [Romycin Ophth Oint] 1 applic LEFT EYE QID 3 Days #1 tube Is patient prescribed a controlled substance at d/c from ED?: No Referrals: Gonzalez Barlow MD [Primary Care Provider] - 1-2 days Olu Smalls MD [STAFF PHYSICIAN] - 1-2 days Time of Disposition: 19:59
== END 2019-02-23 20:44 | disposition home or self-care (01) ==
LOC: EC 19:02
DX: H11.422 Conjunctival edema, left eye (principal); H57.89 Other specified disorders of eye and adnexa; E11.36 Type 2 diabetes mellitus with diabetic cataract; F31.9 Bipolar disorder, unspecified; F17.200 Nicotine dependence, unspecified, uncomplicated; Z79.82 Long term (current) use of aspirin; Z79.899 Other long term (current) drug therapy; Z88.0 Allergy status to penicillin; Z88.1 Allergy status to other antibiotic agents; Z88.6 Allergy status to analgesic agent; Z88.8 Allergy status to other drugs, medicaments and biological substances
CPT/HCPCS: 99282

== ENCOUNTER 2020-03-03 14:17 | Emergency (ER) | payer MEDICARE ==
[2020-03-03 14:31] VITALS: TEMP 97.9
[2020-03-03] MEDS ORDERED: traMADol 50 MG TAB PO STA (15:02)
--- NOTE | 2020-03-03 15:18 | ED ---
General Adult HPI - General Chief complaint: Back Pain/Injury Stated complaint: Sciatica Time Seen by Provider: 03/03/20 14:39 Source: patient, RN notes reviewed, old records reviewed Mode of arrival: wheelchair Limitations: no limitations - History of Present Illness Initial comments: 74-year-old female patient with past history of chronic back pain. Two-view chief complaint of right paralumbar back pain rated down her right leg last 3 weeks. Patient reports that about 3 weeks ago she was in a fair amount of exertion cleaning around the house things of that nature. Reports that she had a flareup of her sciatica. Reports that feels similar to her sciatica flareups in the past. States that she is having some pain radiating down her right leg. Denies any saddle anesthesia or weakness. Denies any recent falls or trauma. Denies any other acute complaints. Systemic: Pt denies fatigue, fever/chills, rash. Pt denies weakness, night sweats, weight loss. Neuro: Pt denies headache, visual disturbances, syncope or pre-syncope. HEENT: Pt denies ocular discharge or irritation, otalgia, rhinorrhea, pharyngitis or notable lymphadenopathy. Cardiopulmonary: Pt denies chest pain, SOB, heart palpitations, dyspnea on exertion. Abdominal/GI: Pt denies abdominal pain, n/v/d. : Pt denies dysuria, burning w/ urination, frequency/urgency. Denies new onset urinary or bowel incontinence. MSK: Pt denies loss of strength or function in extremities. Neuro: Pt denies new onset weakness, paresthesias. - Related Data Home Medications Medication Instructions Recorded Confirmed Citalopram Hydrobromide [CeleXA] 30 mg PO DAILY 02/23/14 02/04/18 busPIRone HCL [Buspar] 15 mg PO QID 02/23/14 02/04/18 lamoTRIgine [LaMICtal] 37.5 mg PO DAILY 02/23/14 02/04/18 Aspirin [Adult Low Dose Aspirin EC] 81 mg PO DAILY 06/20/17 02/04/18 Previous Rx's Medication Instructions Recorded Erythromycin Ophth Oint [Romycin 1 applic LEFT EYE QID 3 Days #1 02/23/19 Ophth Oint] tube Olopatadine HCl [Pataday] 1 drop BOTH EYES DAILY 7 Days #1 02/23/19 bottle predniSONE 50 mg PO DAILY 4 Days #4 tab 03/03/20 Allergies Allergy/AdvReac Type Severity Reaction Status Date / Time cephalexin [From Keflex] Allergy Rash/Hives Verified 03/03/20 14:31 Penicillins Allergy Rash/Hives Verified 03/03/20 14:31 ciprofloxacin [From Cipro] AdvReac Vomiting Verified 03/03/20 14:31 levofloxacin AdvReac Vomiting Verified 03/03/20 14:31 metformin HCl AdvReac LACTIC Verified 03/03/20 14:31 [From Glucophage] ACIDOSIS NSAIDS (Non-Steroidal AdvReac ELAVATED Verified 03/03/20 14:31 Anti-Inflamma LIVER ENZYMES prednisone AdvReac Hallucinati Verified 03/03/20 14:31 ons Review of Systems ROS Statement: Those systems with pertinent positive or pertinent negative responses have been documented in the HPI. ROS Other: All systems not noted in ROS Statement are negative. Past Medical History Past Medical History: Diabetes Mellitus Additional Past Medical History / Comment(s): DDD, chronic back pain, gout History of Any Multi-Drug Resistant Organisms: None Reported Past Surgical History: Orthopedic Surgery, Tubal Ligation Additional Past Surgical History / Comment(s): cataract surgery December 2012 Past Anesthesia/Blood Transfusion Reactions: No Reported Reaction Past Psychological History: Bipolar Smoking Status: Current every day smoker Past Alcohol Use History: Rare Past Drug Use History: None Reported General Exam - General Exam Comments Initial Comments: Constitutional: NAD, AOX3, Pt has pleasant affect. HEENT: NC/AT, trachea midline, neck supple, no lymphadenopathy. External ears appear normal, without discharge. Mucous membranes moist. Eyes PERRLA, EOM intact. There is no scleral icterus. No pallor noted. Cardiopulmonary: RRR, no murmurs, rubs or gallops, no JVD noted. Lungs CTAB in anterior and posterior aguilar. No peripheral edema. Abdominal exam: Abdomen soft and non-distended. Abdomen non-tender to palpation in all 4 quadrants. No hepatosplenomegaly. Neuro: CN II-XII grossly intact. No nuchal rigidity. MSK: right paralumbar region is mildly tender to palpation./5 strength psoas and quadriceps muscles. Sensation is intact. No posterior calf tenderness bilaterally, homans sign negative bilaterally. Posterior tibialis +2 bilaterally. Sensation intact in upper and lower extremities. Full active ROM in upper and lower extremities, 5/5 stregnth. Limitations: no limitations Course Vital Signs 03/03/20 14:28 Temperature 97.9 F Pulse Rate 82 Respiratory 20 Rate Blood Pressure 109/56 O2 Sat by Pulse 99 Oximetry Medical Decision Making - Medical Decision Making 74-year-old female patient. This ED for a chief complaint of right paralumbar back pain with some radicular extending down her right lower extremity. Patient reports he does have occasional numbness and tingling as well. Denies any saddle anesthesia or any red flag symptoms. Physical display some tenderness in the right paralumbar region without any skin changes. Strength and sensation is intact. Plain film of lumbar spine slight mild degenerative spur formation no fracture increased reformation compared to old exam. Patient's symptoms are well controlled needy and she is feeling much improved. Patient will be discharged with her steroid treatment analgesia and outpatient orthopedic follow-up. Case discussed with Dr. Alfaro. - Lab Data Lab Results 03/03/20 Range/Units 15:34 POC Glucose (mg/dL) 100 H (75-99) mg/dL POC Glu Ichthyologist ID Mikayla Mccall Disposition Clinical Impression: Lumbar back pain with radiculopathy affecting right lower extremity Disposition: HOME SELF-CARE Condition: Stable Instructions (If sedation given, give patient instructions): Acute Low Back Pain (ED) Additional Instructions: take steroids as directed. Take pain medication only as needed. Follow with orthopedic consult as well as primary care provider tomorrow. Return to ER if any worsening symptoms. Prescriptions: predniSONE 50 mg PO DAILY 4 Days #4 tab Is patient prescribed a controlled substance at d/c from ED?: No Referrals: Gonzalez Barlow MD [Primary Care Provider] - 1-2 days Lloyd Lama DO [Medical Doctor] - 1-2 days
--- NOTE | 2020-03-03 15:30 | XR ---
EXAMINATION TYPE: XR lumbar spine 2 or 3V DATE OF EXAM: 03/03/2020 COMPARISON: NONE HISTORY: Pain TECHNIQUE: 3 views FINDINGS: Lumbar vertebra have normal alignment. Disc spaces are fairly normal. There is mild spurrin g of the endplates. Posterior elements are intact. There is no compression fracture. Sacroiliac joint s are intact. Abdominal aorta is atheromatous. IMPRESSION: Mild degenerative spur formation. No fracture. There is increased spur formation compared to old exam.
[2020-03-03 15:36] LABS: Glucose,Whole Blood 100 mg/dL (75-99)
[2020-03-03] MEDS ORDERED: ACET/COD 300 MG/30 MG STARTER PACK 6 TAB BTL PO STA (16:23)
[2020-03-03] MEDS ORDERED: predniSONE 50 MG TAB PO STA (16:43)
[2020-03-03 16:54] VITALS: BP 114/62; PULSE 75; RESP 16
== END 2020-03-03 16:54 | disposition home or self-care (01) ==
LOC: EC 14:17
DX: M54.16 Radiculopathy, lumbar region (principal); F31.9 Bipolar disorder, unspecified; F17.200 Nicotine dependence, unspecified, uncomplicated; Z79.899 Other long term (current) drug therapy; Z98.49 Cataract extraction status, unspecified eye; Z88.0 Allergy status to penicillin; Z88.1 Allergy status to other antibiotic agents; Z88.6 Allergy status to analgesic agent; Z88.8 Allergy status to other drugs, medicaments and biological substances; X50.3XXA Overexertion from repetitive movements, initial encounter
CPT/HCPCS: 36415; 72100; 99284

== ENCOUNTER 2020-03-24 19:08 | Emergency (ER) | payer MEDICARE ==
[2020-03-24 19:15] VITALS: BP 147/63; PULSE 100; RESP 18; TEMP 98.3
[2020-03-24] MEDS ORDERED: ACET/COD 300 MG/30 MG STARTER PACK 6 TAB BTL PO STA (19:44)
--- NOTE | 2020-03-24 19:45 | ED ---
ENT HPI - General Chief complaint: Dental/Oral Stated complaint: Mouth pain Time Seen by Provider: 03/24/20 19:21 Source: patient, RN notes reviewed, old records reviewed Mode of arrival: ambulatory Limitations: no limitations - History of Present Illness Initial comments: Patient is a 74-year-old female who presents emergency department today for complaints of left lower jaw swelling. She states that she has had this swelling for the past 2 days. She has poor dentition and plan see a dentist for teeth removed. Patient states that she has not been on any recent antibiotics. She also complains of lumbar radiculopathy. She is been treated before with anti-inflammatory medications. She denies any saddle anesthesias. She states that she has also had worsening pain over the past few weeks. Patient denies any chest pain, shortness of breath. She denies any trismus. The jaw swelling. Denies any foul taste in her mouth. - Related Data Home Medications Medication Instructions Recorded Confirmed Citalopram Hydrobromide [CeleXA] 30 mg PO DAILY 02/23/14 02/04/18 busPIRone HCL [Buspar] 15 mg PO QID 02/23/14 02/04/18 lamoTRIgine [LaMICtal] 37.5 mg PO DAILY 02/23/14 02/04/18 Aspirin [Adult Low Dose Aspirin EC] 81 mg PO DAILY 06/20/17 02/04/18 Previous Rx's Medication Instructions Recorded Erythromycin Ophth Oint [Romycin 1 applic LEFT EYE QID 3 Days #1 02/23/19 Ophth Oint] tube Olopatadine HCl [Pataday] 1 drop BOTH EYES DAILY 7 Days #1 02/23/19 bottle predniSONE 50 mg PO DAILY 4 Days #4 tab 03/03/20 Acetaminophen Tab [Tylenol Tab] 500 mg PO Q4H #20 tablet 03/24/20 clindamycin HCL [Cleocin] 300 mg PO Q6H #28 cap 03/24/20 Allergies Allergy/AdvReac Type Severity Reaction Status Date / Time cephalexin [From Keflex] Allergy Rash/Hives Verified 03/24/20 19:11 Penicillins Allergy Rash/Hives Verified 03/24/20 19:11 ciprofloxacin [From Cipro] AdvReac Vomiting Verified 03/24/20 19:11 levofloxacin AdvReac Vomiting Verified 03/24/20 19:11 metformin HCl AdvReac LACTIC Verified 03/24/20 19:11 [From Glucophage] ACIDOSIS NSAIDS (Non-Steroidal AdvReac ELAVATED Verified 03/24/20 19:11 Anti-Inflamma LIVER ENZYMES prednisone AdvReac Hallucinati Verified 03/24/20 19:11 ons Review of Systems ROS Statement: Those systems with pertinent positive or pertinent negative responses have been documented in the HPI. ROS Other: All systems not noted in ROS Statement are negative. Past Medical History Past Medical History: Diabetes Mellitus Additional Past Medical History / Comment(s): DDD, chronic back pain, gout History of Any Multi-Drug Resistant Organisms: None Reported Past Surgical History: Orthopedic Surgery, Tubal Ligation Additional Past Surgical History / Comment(s): cataract surgery December 2012 Past Anesthesia/Blood Transfusion Reactions: No Reported Reaction Past Psychological History: Bipolar Smoking Status: Current every day smoker Past Alcohol Use History: Rare Past Drug Use History: None Reported General Exam - General Exam Comments Initial Comments: 74-year-old female. Alert and oriented 3. No distress. Limitations: no limitations General appearance: alert, in no apparent distress Head exam: Present: atraumatic, normocephalic, normal inspection, other (Patient has left jaw swelling. Poor dentition. She has evidence of multiple dental caries. No palpable abscess at this time. No trismus.) Eye exam: Present: normal appearance, PERRL, EOMI. Absent: scleral icterus, conjunctival injection, periorbital swelling ENT exam: Present: normal exam, mucous membranes moist Neck exam: Present: normal inspection. Absent: tenderness, meningismus, lymphadenopathy Respiratory exam: Present: normal lung sounds bilaterally. Absent: respiratory distress, wheezes, rales, rhonchi, stridor Cardiovascular Exam: Present: regular rate, normal rhythm, normal heart sounds. Absent: systolic murmur, diastolic murmur, rubs, gallop, clicks GI/Abdominal exam: Present: soft, normal bowel sounds. Absent: distended, tenderness, guarding, rebound, rigid Extremities exam: Present: normal inspection, full ROM, normal capillary refill. Absent: tenderness, pedal edema, joint swelling, calf tenderness Back exam: Present: normal inspection Neurological exam: Present: alert, oriented X3, CN II-XII intact Psychiatric exam: Present: normal affect, normal mood Skin exam: Present: warm, dry, intact, normal color. Absent: rash Course Vital Signs 03/24/20 19:12 Temperature 98.3 F Pulse Rate 100 Respiratory 18 Rate Blood Pressure 147/63 O2 Sat by Pulse 97 Oximetry Medical Decision Making - Medical Decision Making 34-year-old female. Patient presents with left lower jaw swelling for the past 4 days. Patient has poor dental caries. Discussed concern for developing periapical abscess. There is no palpable abscess to drain at this time. Patient be started on antibiotic. Patient has multiple ALLERGIES to antibiotics so we started on clindamycin. I also discussed to start using anti-inflammatory medication for patient's back pain and sciatic distribution. Disposition Clinical Impression: Dental infection, Lumbar back pain with radiculopathy affecting right lower extremity Disposition: HOME SELF-CARE Condition: Good Instructions (If sedation given, give patient instructions): Toothache (ED) Additional Instructions: Please use medication as discussed. Please follow up with family doctor if symptoms have not improved over the next two days. Please return to the emergency room if your symptoms increase or worsen or for any other concerns. Prescriptions: clindamycin HCL [Cleocin] 300 mg PO Q6H #28 cap Acetaminophen Tab [Tylenol Tab] 500 mg PO Q4H #20 tablet Is patient prescribed a controlled substance at d/c from ED?: No Referrals: Gonzalez Barlow MD [Primary Care Provider] - 1-2 days Time of Disposition: 19:38
== END 2020-03-24 19:55 | disposition home or self-care (01) ==
LOC: EC 19:08
DX: K04.7 Periapical abscess without sinus (principal); M54.16 Radiculopathy, lumbar region; K02.9 Dental caries, unspecified; E11.9 Type 2 diabetes mellitus without complications; F31.9 Bipolar disorder, unspecified; F17.200 Nicotine dependence, unspecified, uncomplicated; Z79.82 Long term (current) use of aspirin; Z79.899 Other long term (current) drug therapy; Z88.0 Allergy status to penicillin; Z88.1 Allergy status to other antibiotic agents; Z88.6 Allergy status to analgesic agent; Z88.8 Allergy status to other drugs, medicaments and biological substances
CPT/HCPCS: 99283

== ENCOUNTER 2021-05-17 22:36 | Emergency (ER) | payer MEDICARE ==
--- NOTE | 2021-05-17 23:47 | CT ---
EXAMINATION TYPE: CT mastoid wo con DATE OF EXAM: 05/17/2021 COMPARISON: None HISTORY: pain CT DLP: 286.3 mGycm Automated exposure control for dose reduction was used. Images obtained from the skull base to the top of the orbits without contrast. There is fairly normal aeration of the mastoid air cells. The external auditory canals are intact. Th ere is normal aeration of the epitympanic recess bilaterally. Temporomandibular joints are intact. Li ngular condyles are intact. I see no focal bone destruction. Middle ear cavity appears normal. There is no evidence of posterior fossa mass. IMPRESSION: Negative CT scan of the temporal bones and mastoid sinuses.
[2021-05-18 00:21] VITALS: BP 140/78; PULSE 99; RESP 17; TEMP 97.5
--- NOTE | 2021-05-18 01:17 | ED ---
ENT HPI - General Chief complaint: ENT Stated complaint: Earache Time Seen by Provider: 05/17/21 23:09 Source: patient Mode of arrival: ambulatory Limitations: no limitations - History of Present Illness MD complaint: ear pain Onset/Timin -: days(s) Location: L ear Severity: moderate Quality: aching Consistency: constant Improves with: none Worsens with: none Context- Dental: history of dental caries, other (Tinnitus) - Related Data Home Medications Medication Instructions Recorded Confirmed Citalopram Hydrobromide [CeleXA] 30 mg PO DAILY 02/23/14 02/04/18 busPIRone HCL [Buspar] 15 mg PO QID 02/23/14 02/04/18 lamoTRIgine [LaMICtal] 37.5 mg PO DAILY 02/23/14 02/04/18 Aspirin [Adult Low Dose Aspirin EC] 81 mg PO DAILY 06/20/17 02/04/18 Previous Rx's Medication Instructions Recorded Erythromycin Ophth Oint [Romycin 1 applic LEFT EYE QID 3 Days #1 02/23/19 Ophth Oint] tube Olopatadine HCl [Pataday] 1 drop BOTH EYES DAILY 7 Days #1 02/23/19 bottle predniSONE 50 mg PO DAILY 4 Days #4 tab 03/03/20 Acetaminophen Tab [Tylenol Tab] 500 mg PO Q4H #20 tablet 03/24/20 clindamycin HCL [Cleocin] 300 mg PO Q6H #28 cap 03/24/20 Azithromycin [Zithromax Z-pack (6 250 mg PO DIRECTED #6 tab 05/18/21 tabs)] Allergies Allergy/AdvReac Type Severity Reaction Status Date / Time cephalexin [From Keflex] Allergy Rash/Hives Verified 05/17/21 22:43 Penicillins Allergy Rash/Hives Verified 05/17/21 22:43 ciprofloxacin [From Cipro] AdvReac Vomiting Verified 05/17/21 22:43 levofloxacin AdvReac Vomiting Verified 05/17/21 22:43 metformin HCl AdvReac LACTIC Verified 05/17/21 22:43 [From Glucophage] ACIDOSIS NSAIDS (Non-Steroidal AdvReac ELAVATED Verified 05/17/21 22:43 Anti-Inflamma LIVER ENZYMES prednisone AdvReac Hallucinati Verified 05/17/21 22:43 ons Review of Systems ROS Statement: Those systems with pertinent positive or pertinent negative responses have been documented in the HPI. ROS Other: All systems not noted in ROS Statement are negative. Constitutional: Denies: fever, chills Eyes: Denies: eye pain, vision change ENT: Reports: ear pain. Denies: throat pain, hearing loss, congestion Respiratory: Denies: cough Skin: Denies: rash Neurological: Denies: headache Past Medical History Past Medical History: Diabetes Mellitus Additional Past Medical History / Comment(s): DDD, chronic back pain, gout History of Any Multi-Drug Resistant Organisms: None Reported Past Surgical History: Orthopedic Surgery, Tubal Ligation Additional Past Surgical History / Comment(s): cataract surgery December 2012 Past Anesthesia/Blood Transfusion Reactions: No Reported Reaction Past Psychological History: Bipolar Smoking Status: Current every day smoker Past Alcohol Use History: Rare Past Drug Use History: None Reported General Exam Limitations: no limitations General appearance: alert, in no apparent distress Head exam: Present: atraumatic, normocephalic Eye exam: Present: normal appearance. Absent: scleral icterus, conjunctival injection ENT exam: Present: TM's normal bilaterally, normal external ear exam, other (Poor dentition with multiple caries) Neck exam: Present: normal inspection, full ROM. Absent: tenderness, meningismus, lymphadenopathy Skin exam: Present: warm, dry, intact, normal color. Absent: rash Course Vital Signs 05/17/21 05/18/21 22:41 00:20 Temperature 97.1 F L 97.5 F L Pulse Rate 102 H 99 Respiratory 18 17 Rate Blood Pressure 148/73 140/78 O2 Sat by Pulse 97 98 Oximetry Disposition Clinical Impression: Otalgia of left ear Disposition: HOME SELF-CARE Condition: Good Instructions (If sedation given, give patient instructions): Earache (ED) Prescriptions: Azithromycin [Zithromax Z-pack (6 tabs)] 250 mg PO DIRECTED #6 tab Is patient prescribed a controlled substance at d/c from ED?: No Referrals: Gonzalez Barlow MD [Primary Care Provider] - 1-2 days Dipak Little MD [STAFF PHYSICIAN] - 1-2 days
[2021-05-18] MEDS ORDERED: AZITHROMYCIN 500 MG TAB PO STA (01:19)
== END 2021-05-18 01:27 | disposition home or self-care (01) ==
LOC: EC 22:36
DX: H92.02 Otalgia, left ear (principal); E11.9 Type 2 diabetes mellitus without complications; F31.9 Bipolar disorder, unspecified; M10.9 Gout, unspecified; F17.200 Nicotine dependence, unspecified, uncomplicated; Z79.52 Long term (current) use of systemic steroids; Z79.82 Long term (current) use of aspirin; Z88.0 Allergy status to penicillin; Z88.1 Allergy status to other antibiotic agents; Z88.6 Allergy status to analgesic agent; Z88.8 Allergy status to other drugs, medicaments and biological substances
CPT/HCPCS: 70486; 99283